=== PATIENT | male | born 1995 ===

== ENCOUNTER 2019-10-07 10:54 | Emergency (ER) | payer SELFPAY ==
[2019-10-07 11:36] LABS: Influenza A Molecular NEGATIVE (Negative); Influenza B Molecular NEGATIVE (Negative)
--- NOTE | 2019-10-07 12:17 | UC ---
FLU HPI - HPI Summary HPI Summary: 23-year-old male presents with 3 day history of fever and nonproductive cough. Max temperature of 102 F. Last known fever was this morning for which he took some ibuprofen. Symptoms associated with some general malaise, fatigue, and mild sore throat. Denies ear pain, nasal congestion, nasal discharge, dysphagia , chest pain, shortness of breath, abdominal pain, nausea, or vomiting. - History of Current Complaint Chief Complaint: UCGeneralIllness Stated Complaint: resp complaint Time Seen by Provider: 10/07/19 11:20 Hx Obtained From: Patient Pain Intensity: 3 - Allergy/Home Medications Allergies/Adverse Reactions: Allergies Allergy/AdvReac Type Severity Reaction Status Date / Time No Known Allergies Allergy Verified 10/07/19 11:07 Home Medications: Home Medications ZyrTEC 10 MG TAB* 10 mg PO DAILY 10/07/19 [History Confirmed 10/07/19] PMH/Surg Hx/FS Hx/Imm Hx Previously Healthy: Yes - Denies significant PMH - Surgical History Surgical History: Yes Surgery Procedure, Year, and Place: wisdom teeth - Family History Known Family History: Positive: Non-Contributory - Social History Occupation: Student Lives: Dormitory/Roommates Alcohol Use: Occasionally Substance Use Type: None Smoking Status (MU): Never Smoked Tobacco Review of Systems All Other Systems Reviewed And Are Negative: Yes Constitutional: Positive: Fever, Chills, Fatigue Skin: Negative: Rash Eyes: Negative: Drainage, Eye Redness ENT: Positive: Sore Throat. Negative: Ear Ache, Nasal Discharge, Sinus Congestion, Sinus Pain/Tenderness Respiratory: Positive: Cough. Negative: Shortness Of Breath Cardiovascular: Negative: Chest Pain Gastrointestinal: Negative: Abdominal Pain, Vomiting, Nausea Genitourinary: Positive: Negative Musculoskeletal: Positive: Negative Neurological: Positive: Negative Is Patient Immunocompromised?: No Physical Exam - Summary Physical Exam Summary: GENERAL APPEARANCE: Well developed, well nourished, alert and cooperative, and appears to be in no acute distress. EYES: Conjunctiva clear. No drainage. EARS: External auditory canals and tympanic membranes clear, hearing grossly intact. NOSE: No nasal discharge. THROAT: Pharynx normal. No tonsilar inflammation, swelling, exudate, or lesions. Uvula midline. NECK: Neck supple, non-tender without lymphadenopathy. CARDIAC: Normal S1 and S2. No S3, S4 or murmurs. Rhythm is regular. There is no peripheral edema, cyanosis or pallor. Extremities are warm and well perfused. Capillary refill is less than 2 seconds. Peripheral pulses intact. LUNGS: Course crackles noted to the left middle and lower lung desouza otherwise clear to auscultation. ABDOMEN: Positive bowel sounds. Soft, nondistended, nontender. No guarding or rebound. No masses or hepatosplenomegally. MUSKULOSKELETAL: ROM intact to all extremities. No joint erythema or tenderness. Normal muscular development. Normal gait. SKIN: Skin normal color, texture and turgor with no lesions or eruptions. Triage Information Reviewed: Yes Vital Signs: Initial Vital Signs Temp 98.9 F 10/07/19 11:03 Pulse 105 10/07/19 11:03 Resp 16 10/07/19 11:03 BP 109/69 10/07/19 11:03 Pulse Ox 100 10/07/19 11:03 Vital Signs Reviewed: Yes Diagnostics - Radiology No standard instances Radiology Interpretation Completed By: Radiologist Summary of Radiographic Findings: Order Information: CHEST PA LAT 2 VWS. HISTORY: cough, fever. COMPARISONS: None relevant available at the time of dictation. VIEWS: 4: Frontal dual-energy and lateral views of the chest. FINDINGS: CARDIOMEDIASTINAL SILHOUETTE: The cardiomediastinal silhouette is normal. VICKY: The vicky are normal. PLEURA: The costophrenic angles are sharp. No pleural abnormalities are noted. LUNG PARENCHYMA: There is patchy alveolar opacification of the left lower lung. ABDOMEN: The upper abdomen is clear. There is no subphrenic gas. BONES AND SOFT TISSUES: No bone or soft tissue abnormalities are noted. OTHER: None. IMPRESSION: PATCHY CONSOLIDATION OF THE LEFT LOWER LUNG. RECOMMEND FOLLOW-UP UNTIL RESOLUTION TO EXCLUDE UNDERLYING PULMONARY PARENCHYMAL PATHOLOGY. Flu Course/Dx - Course Course Of Treatment: 23-year-old male presents with 3 day history of fever and nonproductive cough. Max temperature of 102 F. Last known fever was this morning for which he took some ibuprofen. Symptoms associated with some general malaise, fatigue, and mild sore throat. Denies ear pain, nasal congestion, nasal discharge, dysphagia , chest pain, shortness of breath, abdominal pain, nausea, or vomiting. Afebrile. Vital signs stable. On exam patient was noted to have some coarse crackles in the left lower lung field and otherwise unremarkable exam. Chest x- ray showed a patchy alveolar opacification of the left lower lung. Discussed results with the patient. We'll treat him for a likely community-acquired pneumonia of the left lower lung with amoxicillin 1000 mg 3 times a day 10 days and provided him with Tessalon Perles as needed for cough. He is to follow -up at the [facility] within 3 days for reevaluation. Anticipatory guidance and warning symptoms are reviewed with the patient. Verbalizes understanding and agrees with plan of care. - Differential Dx/Diagnosis Differential Diagnosis/HQI/PQRI: Bronchitis, Influenza, Pneumonia, Upper Respiratory Infection, Other - Pharyngitis Provider Diagnosis: Community acquired pneumonia of left lower lobe of lung Discharge ED - Sign-Out/Discharge Documenting (check all that apply): Patient Departure All imaging exams completed and their final reports reviewed: No Studies - Discharge Plan Condition: Stable Disposition: HOME Prescriptions: Amoxicillin PO (*) [Amoxicillin 500 MG CAP*] 1,000 mg PO TID 10 Days #60 cap Benzonatate CAP* [Tessalon 100 MG CAP*] 100 mg PO TID PRN #21 cap PRN Reason: Cough Patient Education Materials: Community Acquired Pneumonia (ED) Referrals: No Primary Care Phys,NOPCP [Primary Care Provider] - [facility] [Outside] - 5 Days (Call for appointment.) Additional Instructions: Your chest x-ray showed a consolidation of the left lower lung which is suggestive pneumonia. We will start she on an antibiotic to treat the infection. Take amoxicillin 1000 mg 3 times a day for 10 days. Take Tessalon Perles 1 capsule every 8 hours as needed for cough. Take acetaminophen (Tylenol) or ibuprofen (Advil, Motrin) according to directions as needed for fever. Follow up at the [facility] of [facility] in 3 days for recheck of symptoms. Call for an appointment Seek immediate medical attention in the emergency room if you have a persistent fever greater than 100.5 F despite taking acetaminophen or ibuprofen, have chest pain, difficulty breathing, or have any worsening of symptoms. - Billing Disposition and Condition Condition: STABLE Disposition: Home - Attestation Statements Provider Attestation: I was available for consult. This patient was seen by the [facility]. The patient was not presented to, seen by, or examined by me. -Gomez
== END 2019-10-07 13:05 | disposition home or self-care (01) ==
LOC: UCEAST 10:54
DX: J18.1 Lobar pneumonia, unspecified organism (principal); R53.81 Other malaise
CPT/HCPCS: 71046; 99202; G0463